=== PATIENT | male | born 1990 | race African-American/Black ===

== ENCOUNTER 2016-07-04 23:57 | Emergency (ER) | payer SELFPAY ==
[~2016-07-04] VITALS: Ht 180.3 cm; Wt 58.7 kg
[2016-07-05] MEDS ORDERED: NAPROSYN500 MG PO (00:44)
[2016-07-05] MEDS ORDERED: ULTRAM50 MG PO (00:47)
[2016-07-05 02:02] VITALS: BP 158/87
== END 2016-07-05 02:02 | disposition home or self-care (01) ==
LOC: EME 23:57 → EXP 23:57
PROC: 2W3EX1Z Immobilization of Right Hand using Splint (ICD-10-PCS; principal; 2016-07-05)
DX: S62.334A Displaced fracture of neck of fourth metacarpal bone, right hand, initial encounter for closed fracture (principal); S62.336A Displaced fracture of neck of fifth metacarpal bone, right hand, initial encounter for closed fracture; W51.XXXA Accidental striking against or bumped into by another person, initial encounter; F10.99 Alcohol use, unspecified with unspecified alcohol-induced disorder; F17.200 Nicotine dependence, unspecified, uncomplicated
CPT/HCPCS: 73130; 99281; 99284